=== PATIENT | male | born 1995 | race Caucasian/White ===

== ENCOUNTER 2020-01-23 19:47 | Emergency (ER) | payer OTHER ==
[2020-01-23] MEDS ORDERED: GABA300 PO (20:01)
[2020-01-23] MEDS ORDERED: Hair, Skin & N1 EACH PO (20:02)
[2020-01-23] MEDS ORDERED: FOLI400 PO (20:02)
[2020-01-23] MEDS ORDERED: B-1100 M1 PO (20:02)
[2020-01-23] MEDS ORDERED: CLON.2 (20:03)
[2020-01-23] MEDS ORDERED: HYDPAM100 PO (20:03)
[2020-01-23] MEDS ORDERED: PROM25 PO (20:04)
[2020-01-23] MEDS ORDERED: TRAZ100 PO (20:04)
[2020-01-23] MEDS ORDERED: CEPH500 PO (20:23)
[2020-01-23] MEDS ORDERED: IBUP600 PO (20:23)
== END 2020-01-23 20:45 | disposition home or self-care (01) ==
DX: S31.119D Laceration without foreign body of abdominal wall, unspecified quadrant without penetration into peritoneal cavity, subsequent encounter (principal); L08.9 Local infection of the skin and subcutaneous tissue, unspecified; F17.210 Nicotine dependence, cigarettes, uncomplicated; Z79.899 Other long term (current) drug therapy

== ENCOUNTER 2020-03-09 16:16 | Emergency (ER) | payer OTHER ==
[~2020-03-09] VITALS: Ht 167.6 cm; Wt 77.1 kg
[~2020-03-09 16:16] MED LIST: B-1100 M1 PO; CEPH500 PO; CLON.2; FOLI400 PO; GABA300 PO; HYDPAM100 PO; Hair, Skin & N1 EACH PO; IBUP600 PO; PROM25 PO; TRAZ100 PO
== END 2020-03-09 18:11 | disposition home or self-care (01) ==
LOC: ER 16:16
DX: H61.21 Impacted cerumen, right ear (principal)
CPT/HCPCS: 69209; 99282-25